=== PATIENT | female | born 1980 | race Caucasian/White ===

== ENCOUNTER 2016-08-08 08:55 | Emergency (ER) | payer OTHER ==
[2016-08-08 09:00] LABS: URINE SOURCE CLEAN CATCH
[2016-08-08 09:11] LABS: CULTURE INDICATED? YES; URBCS1 AUWI 100-200 /[HPF] (0-2); URINE BACTERIA AUWI 1+ (NEGATIVE); URINE SQUAMOUS EPITHELIAL CELL FEW /[HPF]; UWBCS1 AUWI INNUM (0-5)
[2016-08-08 09:16] LABS: URINE APPEARANCE TURBID; URINE COLOR DK YELLOW
[2016-08-08 09:17] LABS: URINE LEUKOCYTE ESTERASE 3+ (NEG); URINE NITRATE NEG (NEG); URINE PH 6.5 (5-8); URINE PROTEIN 30 (NEG); URINE SPECIFIC GRAVITY 1.009 (1.003-1.035)
[2016-08-08 09:18] LABS: URINE BILIRUBIN NEG (NEG); URINE BLOOD 4+ (NEG); URINE GLUCOSE NORM (NEG); URINE KETONE NEG (NEG); URINE UROBILINOGEN 0.2 MG/DL (NEG)
[2016-08-09 19:43] LABS: CHLAMYDIA TRACH Not Detected (Not Detected); N GONOR Not Detected (Not Detected)
== END 2016-08-08 09:40 | disposition home or self-care (01) ==
LOC: CFTX 08:55
PROVIDERS: Physician Assistant
DX: N30.01 Acute cystitis with hematuria (principal); F17.210 Nicotine dependence, cigarettes, uncomplicated; Z98.51 Tubal ligation status; Z88.5 Allergy status to narcotic agent
CPT/HCPCS: 81003; 84703; 87086; 87491; 87591; 87808; 87905; 96372; 99284; J0696

== ENCOUNTER 2016-12-30 15:17 | Emergency (ER) | payer OTHER ==
[~2016-12-30] VITALS: Ht 157.5 cm; Wt 61.2 kg
== END 2016-12-30 17:05 | disposition home or self-care (01) ==
LOC: CFTX 15:17 → CED 15:17 → CFTX 16:50
DX: T22.111A Burn of first degree of right forearm, initial encounter (principal); F17.210 Nicotine dependence, cigarettes, uncomplicated; Z88.5 Allergy status to narcotic agent; X12.XXXA Contact with other hot fluids, initial encounter; Y92.009 Unspecified place in unspecified non-institutional (private) residence as the place of occurrence of the external cause
CPT/HCPCS: 16000; 99283